=== PATIENT | female | born 1960 | race Caucasian/White ===

== ENCOUNTER 2024-06-27 16:43 | Emergency (ER) | payer OTHER ==
[~2024-06-27] VITALS: Ht 165.1 cm; Wt 69.0 kg
[2024-06-27 16:56] VITALS: TEMP 36.7; O2SAT 99
[2024-06-27] MEDS: HYDROCODONE/ACETAMINOPHEN 5/325MG TABLET PO STA (18:54)
[2024-06-27 19:18] LABS: BASOPHILS % 0.6 % (0.0-2.0); EOSINOPHILS % 0.3 % (0.0-5.0); HEMATOCRIT. 40.6 % (36.0-48.0); HEMOGLOBIN. 13.5 g/dL (12.0-16.0); LYMPHOCYTES % 15.6 % (20.0-50.0); MEAN CORPUSCULAR HEMOGLOBIN 29.7 pg (28.0-32.0); MEAN CORPUSCULAR HGB CONC 33.2 g/dL (31.0-37.0); MEAN CORPUSCULAR VOLUME 89.6 fL (81.0-99.0); MONOCYTES % 5.6 % (2.0-8.0); NEUTROPHILS % 77.9 % (40.0-76.0); PLATELET 266 x1000/uL (130-400); RED BLOOD CELL COUNT 4.53 mill/uL (4.2-5.4); RED CELL DISTRIBUTION WIDTH 13.5 % (11.6-14.6); WHITE BLOOD COUNT 11.8 x1000/uL (4.5-11.0)
[2024-06-27 19:26] LABS: CHLORIDE 105 mEq/L (98-107); SODIUM 144 mEq/L (136-145)
[2024-06-27 19:27] LABS: CARBON DIOXIDE 30 mEq/L (21-32)
[2024-06-27 19:32] LABS: CREATININE 0.6 mg/dL (0.6-1.0); GLUCOSE 119 mg/dL (70-105)
[2024-06-27 19:33] LABS: UREA NITROGEN BLOOD 9 mg/dL (9-23)
[2024-06-27 19:34] LABS: CLARITY URINE CLEAR (CLEAR); COLOR URINE YELLOW (YELLOW); GLUCOSE URINE NEGATIVE (NEGATIVE); KETONES URINE 1+ (NEGATIVE); LEUKOCYTE ESTERASE URINE 2+ (NEGATIVE); NITRITE URINE NEGATIVE (NEGATIVE); OCCULT BLOOD URINE NEGATIVE (NEGATIVE); PROTEIN URINE NEGATIVE (NEGATIVE); SPECIFIC GRAVITY URINE 1.007 (1.005-1.030); UROBILINOGEN URINE 0.2 E.U./dL (0.2-1.0)
[2024-06-27 19:34] LABS: ALANINE AMINOTRANSFERASE 37 IU/L (10-49); ALBUMIN 4.3 g/dL (3.2-4.8); ASPARTATE AMINOTRANSFERASE 49 IU/L (<34)
[2024-06-27 19:35] LABS: BILIRUBIN DIRECT 0.1 mg/dL (<=3.0); BILIRUBIN TOTAL 0.5 mg/dL (0.1-1.0); PROTEIN TOTAL 7.3 g/dL (6.0-8.3)
[2024-06-27 19:47] LABS: BACTERIA URINE TRACE; RBC URINE 0-2 /hpf (0-2); SQUAMOUS EPITHELIAL CELL URINE 1+ /lpf (RARE/1+)
[2024-06-27 20:06] VITALS: BP 138/69; PULSE 71; RESP 18; O2SAT 100
== END 2024-06-27 23:46 | disposition home or self-care (01) ==
LOC: ER 16:43
DX: M54.50 Low back pain, unspecified (principal); R10.9 Unspecified abdominal pain; R51.9 Headache, unspecified; E11.9 Type 2 diabetes mellitus without complications; I10 Essential (primary) hypertension; M48.05 Spinal stenosis, thoracolumbar region; M48.061 Spinal stenosis, lumbar region without neurogenic claudication; Z86.73 Personal history of transient ischemic attack (TIA), and cerebral infarction without residual deficits; V43.52XA Car driver injured in collision with other type car in traffic accident, initial encounter; Y93.89 Activity, other specified; Y92.410 Unspecified street and highway as the place of occurrence of the external cause; Y99.8 Other external cause status
CPT/HCPCS: 80076; 80048; 81003; 85025; 36415; 70450; 72125; 72131; 74177; 99285; Z7610 ×2; 99284; A4606